=== PATIENT | female | born 1940 | race Caucasian/White ===

== ENCOUNTER → 2017-02-07 | Outpatient (CLI) | payer MEDICARE, OTHER ==
[~2017-02-07] MED LIST: ALLEGRA PO; AMLODIPINE BESYL5 MG PO; ASPIRIN PO; ASPIRIN81 M1 PO; ASPIRIN81 M2 PO; CALCIUM + D 6001 TA1 PO; CALCIUM PO; CERTAGEN PO; CLARITIN10 MG PO; FISH OIL 1,0001 CAP PO; FLAX SEED OIL PO; FLAX SEED OIL1000 MG PO; FLONASE 0.05% N16 G1; FLONASE16 GM; HARD NAILS2500 MCG PO; ISTALOL; ISTALOL OU; LORTAB 7.51 TAB DOB; NEXIUM PO; NIACIN PO; NIACIN500 M1 PO; OYSTER CALCIUM500 MG PO; PHENERGAN PO; PHENERGAN25 M1 DOB; PRAVACHOL PO; PRAVASTATIN SOD40 MG PO; SV FLAXSEED OI1 EACH PO; TIMOPTIC2.5 ML OD; TRAVATAN2.5 ML OS; TRAVATAN5 ML OS; VICODIN 5/500 T1 TAB PO; VITAMIN B-122000 MCG PO; VITAMIN B12-FO1 EACH PO; VITAMIN D1000 UNI1 PO; VOLTAREN75 MG PO; ZOCOR PO
--- NOTE | ~2017-02-07 | MY11 ---
[facility] A Service of [facility] RADIOLOGY TEXT RESULTS PATIENT: SOPHIA MONTGOMERY LOCATION: [facility] : 36 UNIT #: [id number] AGE: [address]: Cynthia Avila APRN SEX: F ORDER DR: [id number] [facility] [address] [place], [place] [address] [id number] O MR#: [id number] Acc #: [id number] NAME: SOPHIA MONTGOMERY : 1940 SEX: F STUDY DATE/TIME: 02/07/2017 8:53 UNIT: [facility] ROOM: STUDY DESCRIPTION: MY Mammogram Screening Dig Tyrell Attending Physician: Cynthia Avila A.P.R.N. Referring Physician: Cynthia Avila A.P.R.N. Ordering Physician: Cynthia Avila A.P.R.N. Primary Care Physician: Cynthia Avila A.P.R.N. MEDICAL IMAGING REPORT This report is preliminary unless electronic signature is present EXAM Bilateral digital screening with CAD. HISTORY Routine screening. No current complaints. Family history of breast cancer in sisters. COMPARISON 02/06/2016 01/26/2015 10/05/2013. FINDINGS LO and CC digital views of each breast were obtained and reviewed with FDA-approved CAD. Breast are almost entirely fatty replaced. There are no masses or abnormal calcifications. There has been no change. IMPRESSION No change and no evidence of malignancy. Patients over the age of 40 are entered into a reminder system with target due date for the next mammogram. A result letter will also be sent to the patient. BIRADS: 2 Benign finding. Dictated by... Jovan Gibson M.D. THIS IS AN ELECTRONICALLY VERIFIED REPORT Jovan Gibson M.D. at 02/07/2017 1:53 PM Anjali TD: 02/07/2017 13:00 JOB #: [id number] [facility] A Service of [facility] RADIOLOGY TEXT RESULTS PATIENT: SOPHIA MONTGOMERY LOCATION: [facility] : 36 UNIT #: [id number] AGE: [address]: Cynthia Avila APRN SEX: F ORDER DR: MEDICAL IMAGING REPORT Page 1 of 1 COPY
== END | disposition home or self-care (01) ==
LOC: CWCC 08:38
DX: Z12.31 Encounter for screening mammogram for malignant neoplasm of breast (principal); Z80.3 Family history of malignant neoplasm of breast
CPT/HCPCS: G0202

== ENCOUNTER → 2017-07-03 | Outpatient (CLI) | payer MEDICARE ==
--- NOTE | ~2017-07-03 | CT4 ---
[facility] A Service of [facility] RADIOLOGY TEXT RESULTS PATIENT: SOPHIA MONTGOMERY LOCATION: [facility] : 38 UNIT #: [id number] AGE: [address]: Cynthia Avila APRN SEX: F ORDER DR: [id number] [facility] [address] [place], [place] [address] [id number] O MR#: [id number] Acc #: [id number] NAME: SOPHIA MONTGOMERY : 1940 SEX: F STUDY DATE/TIME: 07/03/2017 13:31 UNIT: [facility] ROOM: STUDY DESCRIPTION: CT Abd and Pelv Wo Cont Attending Physician: Cynthia Avila A.P.R.N. Referring Physician: Cynthia Avila A.P.R.N. Ordering Physician: Cynthia Avila A.P.R.N. Primary Care Physician: Cynthia Avila A.P.R.N. MEDICAL IMAGING REPORT This report is preliminary unless electronic signature is present EXAM CT abdomen and pelvis without contrast. INDICATIONS Right upper quadrant abdominal pain for the past [address] abdomen and pelvis. This CT exam was performed with one or more of the following radiation dose reduction techniques: automatic exposure control, adjustment of mA and/or kV according to patient size, and iterative reconstruction. COMPARISON 06/06/2016 FINDINGS ABDOMEN WITHOUT CONTRAST: Included lung bases are clear. Liver is enlarged, measuring 19.9 cm in length. No liver lesions seen on this unenhanced study. The spleen, kidneys, adrenal glands, and pancreas unremarkable. Previous cholecystectomy. Bowel loops are nondilated. PELVIS WITHOUT CONTRAST: No pelvic mass or fluid. No aggressive- appearing bone lesion. IMPRESSION 1. No acute findings in the abdomen or pelvis. 2. Hepatomegaly. Dictated by... Marcus Lozano M.D. [facility] A Service [facility] RADIOLOGY TEXT RESULTS PATIENT: SOPHIA MNOTGOMERY [id number] 36 UNIT #: [id number] AGE: [address]: Cynthia Avila APRN SEX: F ORDER DR: THIS IS AN ELECTRONICALLY VERIFIED REPORT Marcus Lozano M.D. at 07/05/2017 2:38 PM NIR/harshal TD: 07/03/2017 15:46 JOB #: [id number] MEDICAL IMAGING REPORT Page 1 of 1 COPY
== END | disposition home or self-care (01) ==
LOC: CCAT 12:48
DX: R10.11 Right upper quadrant pain (principal); R11.0 Nausea; R16.0 Hepatomegaly, not elsewhere classified
CPT/HCPCS: 74176